=== PATIENT | female | born 1995 | race Two or more races ===

== ENCOUNTER 2018-05-06 00:54 | Inpatient (IN) | payer OTHER ==
[~2018-05-06] VITALS: Ht 157.5 cm; Wt 53.1 kg
[2018-05-06] MEDS ORDERED: HALOPERIDOL 5 MG/ML VIAL (J1630) IM ONE (01:00)
[2018-05-06] MEDS ORDERED: LORazepam 2 MG/ML VIAL (J2060) IM ONE (01:00)
[2018-05-06] MEDS ORDERED: diphenhydrAMINE INJ 50MG/ML VIAL (J1200) IM ONE (01:00)
[2018-05-06] MEDS ORDERED: LORazepam 2 MG/ML VIAL (J2060) As Ordered ONE (01:03)
[2018-05-06] MEDS ORDERED: diphenhydrAMINE INJ 50MG/ML VIAL (J1200) As Ordered ONE (01:03)
[2018-05-06] MEDS ORDERED: HALOPERIDOL 5 MG/ML VIAL (J1630) As Ordered ONE (01:03)
[2018-05-06 01:18] LABS: HEMATOCRIT 40.7 % (36.0-47.0); HEMOGLOBIN 13.6 g/dl (12.0-15.5); MEAN CORPUSCULAR HGB CONC 33.4 g/dl (32.0-36.5); MEAN CORPUSCULAR VOLUME 86.8 fl (80.0-96.0); PLATELET COUNT, AUTOMATED 355 10^3/uL (150-450); RED BLOOD COUNT 4.69 10^6/uL (4.00-5.40); WHITE BLOOD COUNT 7.8 10^3/uL (4.0-10.0)
[2018-05-06 02:00] LABS: HCG, SERUM QUALITATIVE NEGATIVE (NEGATIVE)
[2018-05-06 02:09] LABS: ACETAMINOPHEN LEVEL < 2.0 UG/ML (10.0-30.0); ALBUMIN 4.2 GM/DL (3.2-5.2); ALT/SGPT 37 U/L (12-78); BILIRUBIN,DIRECT 0.2 MG/DL (0.0-0.2); BILIRUBIN,TOTAL 0.5 MG/DL (0.2-1.0); BLOOD UREA NITROGEN 8 MG/DL (7-18); CALCIUM LEVEL 8.1 MG/DL (8.5-10.1); CARBON DIOXIDE LEVEL 22 MEQ/L (21-32); CHLORIDE LEVEL 107 MEQ/L (98-107); ETHYL ALCOHOL (ETHANOL) 0.315 % (0.000-0.010); GLOMERULAR FILTRATION RATE > 60.0 (>60); GLUCOSE, FASTING 101 MG/DL (70-100); SALICYLATE LEVEL < 1.7 MG/DL (5.0-30.0); SODIUM LEVEL 144 MEQ/L (136-145); TOTAL PROTEIN 7.6 GM/DL (6.4-8.2)
[2018-05-06 02:22] LABS: AMPHETAMINES LEVEL URINE NEGATIVE (NEGATIVE); BARBITURATES URINE NEGATIVE (NEGATIVE); BENZODIAZEPINES URINE NEGATIVE (NEGATIVE); CANNABINOIDS URINE NEGATIVE (NEGATIVE); COCAINE METABOLITE URINE NEGATIVE (NEGATIVE); METHADONE URINE NEGATIVE (NEGATIVE); OPIATES URINE NEGATIVE (NEGATIVE); PHENCYCLIDINE URINE NEGATIVE (NEGATIVE)
[2018-05-06] MEDS ORDERED: POTASSIUM CHLORIDE 10 MEQ SR TABLET PO ONE ×2 (03:00→04:30)
[2018-05-06] MEDS ORDERED: VITMTA PO (12:55)
[2018-05-06] MEDS ORDERED: ESCI10TA2 PO (12:55)
[2018-05-06] MEDS ORDERED: BIOT1CAP2 PO (12:55)
[2018-05-06] MEDS ORDERED: ESCI20TA PO (12:58)
[2018-05-06] MEDS ORDERED: MAALOX 30 ML SUSP *UDC PO PRN (13:15)
[2018-05-06] MEDS ORDERED: MOM 30ML SUSPENSION UDC PO PRN (13:15)
[2018-05-06] MEDS ORDERED: traZODone 50 MG TAB PO PRN (13:15)
[2018-05-06] MEDS ORDERED: ACETAMINOPHEN TAB 650MG DOSE (2X325MG) PO PRN (13:15)
[2018-05-06 14:03] VITALS: BP 130/88
[2018-05-06 15:00] VITALS: BP 130/88
[2018-05-06] MEDS ORDERED: LORazepam 2 MG TAB PO PRN (15:15)
[2018-05-06] MEDS ORDERED: THIAMINE 100 MG TAB PO ONE (16:00)
[2018-05-06] MEDS: MULTIVITAMINS/MINERALS THERAP 1 TAB PO SCH (16:20)
[2018-05-06] MEDS: FOLIC ACID 1 MG TAB PO SCH (16:20)
[2018-05-06 18:00] VITALS: BP 120/79
[2018-05-07 07:00] VITALS: BP 140/83
[2018-05-07 07:23] LABS: BLOOD UREA NITROGEN 13 MG/DL (7-18); CALCIUM LEVEL 8.9 MG/DL (8.5-10.1); CARBON DIOXIDE LEVEL 26 MEQ/L (21-32); CHLORIDE LEVEL 106 MEQ/L (98-107); CREATININE FOR GFR 0.65 MG/DL (0.55-1.30); GLOMERULAR FILTRATION RATE > 60.0 (>60); GLUCOSE, FASTING 81 MG/DL (70-100); SODIUM LEVEL 139 MEQ/L (136-145)
[2018-05-07] MEDS ORDERED: THIAMINE 100 MG TAB PO SCH (09:00)
[2018-05-07] MEDS: MULTIVITAMINS/MINERALS THERAP 1 TAB PO SCH (09:38)
[2018-05-07] MEDS: FOLIC ACID 1 MG TAB PO SCH (09:38)
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
--- NOTE | 2018-05-07 15:50 | HPE ---
DATE OF ADMISSION: 05/06/2018 HISTORY OF PRESENT ILLNESS: Please refer to psychiatric history and evaluation for further details on this admission. This examination and history is intended for medical issues, which may need treatment, followup, or consult on this 22-year-old female. ALLERGIES: No known allergies. PRIMARY CARE PROVIDER: Reji. SOCIAL HISTORY: She is . Her is a soldier, currently stationed at [employer]. EtOH (ethanol): At least twice a week, mixed drinks. Smokes: None. Recreational drug use: None. PAST MEDICAL HISTORY: Negative. PAST SURGICAL HISTORY: Negative. FAMILY HISTORY: Noncontributory. HOME MEDICATIONS: - Lexapro 200 mg by mouth daily - multivitamin one by mouth daily - Biotin 1 mg by mouth daily LABORATORY STUDIES: CBC was normal. Sodium 144, potassium 3.0; replacement was given. Will recheck potassium in the morning. Chloride 107, BUN 8, creatinine 0.8, EtOH (ethanol) 0.315. REVIEW OF SYSTEMS: A 10-systems review was done and was unremarkable. PHYSICAL EXAMINATION: A 22-year-old cooperative female in no acute distress. Vital signs are stable. Height 62 inches, weight 53.1 kg, body mass index (BMI) 21.4. Blood pressure 109/67, pulse 100, respirations 16, oxygen saturation 96% on room air, temperature 99. Patient is alert and oriented times three. Pupils equal and reactive to light. Extraocular movements (EOMs) intact. Corneae and sclerae clear. Conjunctivae are normal. No facial asymmetry. Pharynx, tongue, gums pink and moist. Tongue is midline. Neck is supple without lymphadenopathy. No thyromegaly. No goiter. Carotids 2+ without bruit. Chest clear to auscultation without wheeze or retraction. Heart is regular. Abdomen benign. Bowel sounds positive. Genitourinary/rectal not done. Extremities show equal strength, full range of motion. No cyanosis, clubbing, or edema. Peripheral pulses equal and palpable bilaterally. Skin is warm and dry. IMPRESSION AND PLAN: 1. Psychiatric plan her psychiatry. 2. Hypothyroidism. Replacement given. Will recheck in the morning. 3. Monitor for alcohol withdrawal. No other acute medical issues.
[2018-05-07 18:00] VITALS: BP 129/76
[2018-05-08] MEDS ORDERED: ESCI20TA PO (10:11)
[2018-05-08] MEDS ORDERED: TRAZO50TA PO (10:11)
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
== END 2018-05-08 14:10 | disposition home or self-care (01) | DRG 881 ==
LOC: M ED 00:54 → EDBD 00:54 → M ED INP 13:16 → M PSY 14:00
PROVIDERS: ADMIT Psychiatry & Neurology Psychiatry; ATTEND Psychiatry & Neurology Psychiatry
DX: F32.9 Major depressive disorder, single episode, unspecified (principal); F10.94 Alcohol use, unspecified with alcohol-induced mood disorder; F10.10 Alcohol abuse, uncomplicated; Z63.4 Disappearance and death of family member; Z91.040 Latex allergy status; Z91.018 Allergy to other foods; F17.200 Nicotine dependence, unspecified, uncomplicated; E03.9 Hypothyroidism, unspecified

== ENCOUNTER 2018-07-12 21:24 | Emergency (ER) | payer OTHER ==
[~2018-07-12] VITALS: Ht 160 cm; Wt 53.6 kg
[~2018-07-12 21:24] MED LIST: BIOT1CAP2 PO; ESCI10TA2 PO; ESCI20TA PO; TRAZO50TA PO; VITMTA PO
[2018-07-12 21:25] VITALS: BP 123/78
[2018-07-12] MEDS ORDERED: IBUP80TA PO (21:55)
[2018-07-12] MEDS ORDERED: CEPHALEXIN 500 MG CAP As Ordered ONE (22:53)
[2018-07-12] MEDS ORDERED: DIFL150T PO (22:54)
[2018-07-12] MEDS ORDERED: KEFL500C17 PO (22:54)
[2018-07-12] MEDS ORDERED: CEPHALEXIN SUSP POWDER 250MG/5ML BTL 100ML PO ONE (23:00)
[2018-07-12] MEDS ORDERED: CEPHALEXIN 500 MG CAP PO ONE (23:00)
== END 2018-07-12 22:57 | disposition home or self-care (01) ==
LOC: M ED 21:24
DX: K11.8 Other diseases of salivary glands (principal); Z91.018 Allergy to other foods

== ENCOUNTER 2018-12-16 17:47 | Emergency (ER) | payer OTHER ==
[~2018-12-16] VITALS: Ht 157.5 cm; Wt 54.6 kg
[~2018-12-16 17:47] MED LIST changes: +DIFL150T PO; +IBUP80TA PO; +KEFL500C17 PO; +TRAZ1TAB10 PO; -TRAZO50TA PO
[2018-12-16] MEDS ORDERED: ESSETAB4 PO (17:53)
[2018-12-16 18:59] VITALS: BP 128/84
== END 2018-12-16 19:02 | disposition home or self-care (01) ==
LOC: M ED 17:47
DX: R10.2 Pelvic and perineal pain (principal); T19.2XXA Foreign body in vulva and vagina, initial encounter; X58.XXXA Exposure to other specified factors, initial encounter; Y92.89 Other specified places as the place of occurrence of the external cause; Z91.018 Allergy to other foods; Z77.098 Contact with and (suspected) exposure to other hazardous, chiefly nonmedicinal, chemicals

== ENCOUNTER 2019-01-01 00:31 | Emergency (ER) | payer OTHER ==
[~2019-01-01] VITALS: Ht 160 cm; Wt 53.2 kg
[~2019-01-01 00:31] MED LIST changes: +ESSETAB4 PO
[2019-01-01] MEDS ORDERED: LORazepam 2 MG/ML VIAL (J2060) IV STA (01:20)
[2019-01-01] MEDS ORDERED: NS 1,000 ML IV ONE (01:30)
[2019-01-01 01:38] LABS: BASO % 0.3 % (0.0-1.0); EOS # 0.1 10^3/uL (0.0-0.50); EOS % 0.6 % (0.0-3.0); HEMATOCRIT 38.8 % (36.0-47.0); HEMOGLOBIN 13.1 g/dl (12.0-15.5); LYMPH # 3.5 10^3/uL (1.5-6.5); LYMPH % 44.1 % (24.0-44.0); MEAN CORPUSCULAR HEMOGLOBIN 29.7 pg (27.0-33.0); MEAN CORPUSCULAR HGB CONC 33.8 g/dl (32.0-36.5); MONO # 0.7 10^3/uL (0.0-0.8); MONO % 8.7 % (0.0-5.0); NEUTROPHILS # 3.6 10^3/uL (1.8-7.7); PLATELET COUNT, AUTOMATED 243 10^3/uL (150-450); RED BLOOD COUNT 4.41 10^6/uL (4.00-5.40); WHITE BLOOD COUNT 7.9 10^3/uL (4.0-10.0)
[2019-01-01 01:49] LABS: ALBUMIN 4.1 GM/DL (3.2-5.2); BILIRUBIN,DIRECT 0.1 MG/DL (0.0-0.2); BILIRUBIN,TOTAL 0.4 MG/DL (0.2-1.0); TOTAL PROTEIN 7.2 GM/DL (6.4-8.2)
[2019-01-01] MEDS ORDERED: SIMETHICONE 80 MG CHEW TAB PO ONE (03:00)
[2019-01-01 03:19] VITALS: BP 134/85
== END 2019-01-01 03:21 | disposition home or self-care (01) ==
LOC: M ED 00:31
DX: R14.0 Abdominal distension (gaseous) (principal); F41.1 Generalized anxiety disorder; M54.9 Dorsalgia, unspecified; F32.9 Major depressive disorder, single episode, unspecified; F10.10 Alcohol abuse, uncomplicated; Z91.018 Allergy to other foods
CPT/HCPCS: 74021; 80047; 80076; 83690; 84702; 85025; 93041; 96361; 96374; 99284; J2060